=== PATIENT | male | born 1995 | race Caucasian/White ===

== ENCOUNTER 2019-09-02 11:20 | Emergency (ER) | payer OTHER ==
[~2019-09-02] VITALS: Ht 180.3 cm; Wt 104.3 kg
--- NOTE | ~2019-09-02 | EKG ---
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
[~2019-09-02 11:20] MED LIST: ANTIACID; IBUPROFEN 600600 M1 PO; IBUPROFEN 800800 MG PO; NOHOMEMEDICATIONS; NORCO 5-325 TA1 EACH PO; NORFLEX100 MG PO
[2019-09-02 11:39] LABS: ABSOLUTE BASOPHILS 0.1 thou/uL (0.0-0.2); ABSOLUTE EOSINOPHILS 0.3 thou/uL (0.0-0.7); ABSOLUTE LYMPHOCYTES 1.7 thou/uL (0.8-5.3); ABSOLUTE MONOCYTES 0.5 thou/uL (0.0-1.2); ABSOLUTE NEUTROPHILS 4.9 thou/uL (1.6-8.1); BASOPHILS 0.9 %; EOSINOPHILS 4.5 %; HEMATOCRIT 46.6 % (42.0-52.0); HEMOGLOBIN 16.3 gm/dL (14.0-18.0); MCH 31.1 pg (26.0-34.0); MCV 88.8 fL (80.0-100.0); MONOCYTES 6.9 %; MPV 8.8 fl. (7.2-11.1); NUCLEATED RBCS 0 /100WBC; PLATELET COUNT* 264 thou/uL (150-400); POLYS 65.7 %; RBC 5.24 mil/uL (4.50-6.00); RDW-CV 12.9 % (10.5-14.5); WBC 7.5 thou/uL (4.0-11.0)
[2019-09-02 11:51] LABS: CALCIUM 8.7 mg/dL (8.5-10.1); POTASSIUM 3.6 mmol/L (3.5-5.1)
[2019-09-02 11:55] LABS: APTT 29.7 Seconds (25.0-31.3); INR 1.1; PROTIME 10.8 Seconds (9.20-11.50)
[2019-09-02 12:07] LABS: ALBUMIN 4.5 g/dL (3.4-5.0); CK-MB MASS 0.5 ng/mL (<0.5-3.6); TOTAL BILIRUBIN 0.6 mg/dL (<0.1-1.0); TOTAL PROTEIN 7.9 g/dL (6.4-8.2)
[2019-09-02 12:48] VITALS: BP 154/92
== END 2019-09-02 12:51 | disposition home or self-care (01) ==
LOC: M.ERS 11:20
PROVIDERS: Family Medicine
DX: R07.89 Other chest pain (principal); R06.02 Shortness of breath; I10 Essential (primary) hypertension

== ENCOUNTER 2019-10-19 11:12 | Emergency (ER) | payer OTHER ==
[~2019-10-19] VITALS: Ht 182.9 cm; Wt 104.3 kg
[2019-10-19 11:45] LABS: INFLUENZA A ANTIGEN Negative (Negative); INFLUENZA B ANTIGEN Negative (Negative)
[2019-10-19] MEDS ORDERED: TYLENOL WITH CO1 TA1 PO (11:48)
[2019-10-19] MEDS ORDERED: AMOXICILLIN 50500 MG PO (11:48)
[2019-10-19 11:58] VITALS: BP 128/76
== END 2019-10-19 11:58 | disposition home or self-care (01) ==
LOC: M.ERS 11:12
PROVIDERS: Physician Assistant
DX: J02.0 Streptococcal pharyngitis (principal); I10 Essential (primary) hypertension

== ENCOUNTER 2020-03-07 04:07 | Emergency (ER) | payer OTHER ==
[~2020-03-07] VITALS: Ht 182.9 cm; Wt 106.6 kg
[~2020-03-07 04:07] MED LIST changes: +AMOXICILLIN 50500 MG PO; +TYLENOL WITH CO1 TA1 PO
[2020-03-07 04:55] LABS: ABSOLUTE BASOPHILS 0.1 thou/uL (0.0-0.2); ABSOLUTE EOSINOPHILS 0.3 thou/uL (0.0-0.7); ABSOLUTE LYMPHOCYTES 1.7 thou/uL (0.8-5.3); ABSOLUTE MONOCYTES 0.9 thou/uL (0.0-1.2); ABSOLUTE NEUTROPHILS 10.7 thou/uL (1.6-8.1); BASOPHILS 0.8 %; EOSINOPHILS 2.5 %; HEMATOCRIT 47.5 % (42.0-52.0); HEMOGLOBIN 16.8 gm/dL (14.0-18.0); LYMPHOCYTES 12.2 %; MCH 31.2 pg (26.0-34.0); MCHC 35.4 g/dL (28.0-37.0); MCV 88.2 fL (80.0-100.0); MONOCYTES 6.3 %; MPV 9.2 fl. (7.2-11.1); NUCLEATED RBCS 0 /100WBC; PLATELET COUNT* 250 thou/uL (150-400); POLYS 78.2 %; RBC 5.39 mil/uL (4.50-6.00); WBC 13.7 thou/uL (4.0-11.0)
[2020-03-07 05:06] LABS: PROTIME 10.5 Seconds (9.20-11.50)
[2020-03-07 05:11] LABS: ANION GAP 14 mmol/L (7-16); BUN 12 mg/dL (7-18); CALCIUM 9.2 mg/dL (8.5-10.1); CHLORIDE 102 mmol/L (98-107); CO2 24 mmol/L (21-32); GLUCOSE 119 mg/dL (70-99); POTASSIUM 3.8 mmol/L (3.5-5.1); SODIUM 140 mmol/L (136-145)
[2020-03-07 05:24] LABS: ALBUMIN 4.4 g/dL (3.4-5.0); ALKALINE PHOSPHATASE 83 U/L (46-116); CK-MB MASS < 0.5 ng/mL (<0.5-3.6); LIPASE 89 U/L (73-393); MAGNESIUM 1.7 mg/dL (1.8-2.4); NT-PRO BRAIN NAT PEPTIDE 22 pg/mL (<300); SGOT 22 U/L (15-37); SGPT 44 U/L (30-65); TOTAL BILIRUBIN 0.4 mg/dL (<0.1-1.0)
[2020-03-07 06:29] VITALS: BP 109/66
--- NOTE | 2020-03-07 14:18 | EKG ---
[place] [address] ELECTROCARDIOGRAM REPORT Name: JEANNINE BECKETT Room: [facility]#: [id number] Admission: 03/07/20 Attend Phys: Discharge: 03/07/20 Date of : [birth year] Date of Service: 03/07/20 0422 Report #: [id number] THIS REPORT FOR: //name// [facility] ED Test Date: 2020-03-07 Test Time: 04:22:22 Pat Name: JEANNINE BECKETT Department: Room: Gender: Review Analyst: KIRSTEN : 1995 Requested By: Jah Nava Order Number: [id number] MD: Wilfrido Moreno Measurements Intervals [place] Rate: 71 P: 49 ME: 172 QRS: 41 QRSD: 99 T: 26 QT: 366 QTc: 398 Interpretive Statements Sinus rhythm early transition ST elev, probable normal early repol pattern Compared to ECG 09/02/2019 11:24:18 No significant changes Electronically Signed On 03-07-2020 14:18:42 CDT by Wilfrido Moreno [email or web address] <ELECTRONICALLY SIGNED> By: Wilfrido Moreno MD, [facility] 03/07/20 1418 0422 0422 Wilfrido Moreno MD, [facility] /EPI
== END 2020-03-07 06:29 | disposition home or self-care (01) ==
LOC: M.ERS 04:07
PROVIDERS: Family Medicine
DX: R10.84 Generalized abdominal pain (principal); I10 Essential (primary) hypertension; F17.210 Nicotine dependence, cigarettes, uncomplicated

== ENCOUNTER 2020-06-28 11:00 | Emergency (ER) | payer OTHER ==
[~2020-06-28] VITALS: Ht 182.9 cm; Wt 106.6 kg
[2020-06-28 12:05] VITALS: BP 138/72
== END 2020-06-28 12:05 | disposition home or self-care (01) ==
LOC: M.ERS 11:00
DX: Z20.828 Contact with and (suspected) exposure to other viral communicable diseases (principal); I10 Essential (primary) hypertension

== ENCOUNTER 2020-08-06 12:13 | Emergency (ER) | payer OTHER ==
[~2020-08-06] VITALS: Ht 182.9 cm; Wt 106.6 kg
[2020-08-06 13:26] VITALS: BP 122/67
[2020-08-06] MEDS ORDERED: ONDANSETRON ODT4 MG PO (13:41)
== END 2020-08-06 13:53 | disposition home or self-care (01) ==
LOC: M.ERS 12:13
DX: Z20.828 Contact with and (suspected) exposure to other viral communicable diseases (principal); I10 Essential (primary) hypertension

== ENCOUNTER 2020-11-23 11:40 | Emergency (ER) | payer OTHER ==
[~2020-11-23] VITALS: Ht 182.9 cm; Wt 106.6 kg
[~2020-11-23 11:40] MED LIST changes: +ONDANSETRON ODT4 MG PO
[2020-11-23] MEDS ORDERED: AMOXICILLIN 50500 MG PO (12:20)
[2020-11-23 12:29] VITALS: BP 140/95
== END 2020-11-23 12:30 | disposition home or self-care (01) ==
LOC: M.ERS 11:40
DX: J02.9 Acute pharyngitis, unspecified (principal); I10 Essential (primary) hypertension

== ENCOUNTER 2021-05-29 17:47 | Emergency (ER) | payer OTHER ==
[~2021-05-29] VITALS: Ht 182.9 cm; Wt 106.6 kg
[2021-05-29] MEDS ORDERED: SERTRALINE HCL100 MG PO (18:00)
[2021-05-29] MEDS ORDERED: PRAZOSIN 1 MG CA1 M1 PO (18:00)
[2021-05-29 18:45] VITALS: BP 134/88
== END 2021-05-29 18:45 | disposition home or self-care (01) ==
LOC: M.ERS 17:47
DX: J06.9 Acute upper respiratory infection, unspecified (principal); Z20.822 Contact with and (suspected) exposure to COVID-19; I10 Essential (primary) hypertension; F41.9 Anxiety disorder, unspecified; F32.9 Major depressive disorder, single episode, unspecified; F17.210 Nicotine dependence, cigarettes, uncomplicated; Z79.899 Other long term (current) drug therapy